=== PATIENT | female | born 1995 | race African-American/Black ===

== ENCOUNTER 2016-07-22 03:11 | Emergency (ER) | payer MEDICAID ==
[~2016-07-22] VITALS: Ht 165.1 cm; Wt 95.3 kg
[2016-07-22 03:30] VITALS: BP 112/59
--- NOTE | 2016-07-22 04:04 | Emergency Room Report ---
History of Present Illness General Chief Complaint: Abdominal Pain Source: Patient Present Illness HPI Is a 20-year-old female with no past medical history. She presents with chief complaint of feeling nauseous and vomiting. His been ongoing for last 2 days. Usually around the afternoon at work after she. Denies any symptoms right now. No fever chills but no diarrhea. Vomiting is nonbloody nonbilious. Her last menstrual period was beginning of May. No vaginal bleeding. Allergies: Coded Allergies: No Known Allergies (Unverified , 07/22/16) Patient History Past Medical History: see triage record, old chart reviewed Past Surgical History: other Pertinent Family History: none Social History: Denies: smoking Last Menstrual Period: MAY 28 Immunizations: other Reviewed Nursing Documentation: PMH: Agreed, PSxH: Agreed Nursing Documentation-PMH Past Medical History: No Stated History Review of Systems Eye: Denies: blurred vision, eye pain ENT: Denies: ear pain, nose congestion, throat swelling Respiratory: Denies: cough, shortness of breath Cardiovascular: Denies: chest pain, palpitations Gastrointestinal: Reports: abdominal pain, nausea, vomiting, Denies: diarrhea Musculoskeletal: Denies: back pain, joint pain Skin: Denies: rash Neurological: Denies: headache, numbness Endocrine: Denies: increased thirst, increased urine Hematologic/Lymphatic: Denies: easy bruising All Other Systems: negative except mentioned in HPI Physical Exam Vital Signs Date Time Temp Pulse Resp B/P Pulse Ox O2 Delivery O2 Flow Rate FiO2 07/22/16 03:17 97.5 85 18 110/57 94 Room Air vitals normal Sp02 EP Interpretation: reviewed, normal General Appearance: well appearing, no apparent distress, alert Head: normocephalic, atraumatic Eyes: bilateral eye EOMI, bilateral eye PERRL ENT: hearing grossly normal, normal pharynx Neck: full range of motion, supple, no meningismus Respiratory: chest non-tender, lungs clear, normal breath sounds Cardiovascular #1: regular rate, rhythm, no murmur Gastrointestinal: normal bowel sounds, non tender, no mass, no organomegaly, no bruit, non-distended Musculoskeletal: back normal, gait/station normal, normal range of motion Psychiatric: mood/affect normal Skin: warm/dry Medical Decision Making Diagnostic Impression: Primary Impression: Qualified Codes: Z3A.01 - Less than 8 weeks gestation of Additional Impression: UTI (urinary tract infection) Qualified Codes: N30.00 - Acute cystitis without hematuria ER Course Patient presents with nausea and vomiting and early . Urine positive. I did a bedside transabdominal ultrasound showed an IUP with yolk sac. No heart rate or fetus seen. No evidence of ectopic. She's not on fertility medication. Last Vital Signs Date Time Temp Pulse Resp B/P Pulse Ox O2 Delivery O2 Flow Rate FiO2 07/22/16 03:30 97.8 82 17 112/59 97 Room Air Status: improved Disposition: HOME, SELF-CARE Condition: Stable Scripts Nitrofurantoin Monohyd/M-Cryst* (MACROBID 100 MG*) 100 Mg Capsule 100 MG ORAL EVERY 12 HOURS, #14 CAP Prov: CARLEEN WALKER M.D. 07/22/16 Ondansetron (Zofran) 4 Mg Tablet 4 MG ORAL Q6H Y for Nausea & Vomiting, #30 TAB 0 Refills Prov: CARLEEN WALKER M.D. 07/22/16 Additional Instructions: Followup with your for referral to see SPOOL FIXER within a week. Return if symptom worsen. Take nhjl-rdr-egseast vitamins. Return if worse CARLEEN WALKER M.D. July 22, 2016 04:03
[2016-07-22 04:05] LABS: KETONES,URINE NEGATIVE (NEGATIVE); NITRITE,URINE NEGATIVE (NEGATIVE); PH,URINE 6 (4.5-8.0); PROTEIN,URINE 2+ (NEGATIVE)
[2016-07-22 04:07] LABS: APPEARANCE,URINE SLIGHTLY CLOUDY
[2016-07-22 04:08] LABS: LEUKOCYTE ESTERASE ,URINE 2+ (NEGATIVE); UROBILINOGEN,URINE 1 MG/DL (0.0-1.0)
[2016-07-22 04:09] LABS: BACTERIA,URINE MODERATE /HPF; RBC,URINE 0-2 /HPF (0 - 2); SQUAMOUS EPITHELIAL CELL,UR MANY /LPF (NONE/OCC)
[2016-07-22] MEDS ORDERED: ZOFRAN4 MG ORAL (04:29)
[2016-07-22] MEDS ORDERED: NITROFURANTOIN100 M2 ORAL (04:29)
[2016-07-22 04:35] VITALS: BP 115/61
== END 2016-07-22 04:35 | disposition home or self-care (01) ==
LOC: EMR 03:45
DX: O23.41 Unspecified infection of urinary tract in pregnancy, first trimester (principal); O26.891 Other specified pregnancy related conditions, first trimester; R11.2 Nausea with vomiting, unspecified; R10.9 Unspecified abdominal pain
CPT/HCPCS: 81003; 81025; 87086; 99284

== ENCOUNTER 2016-10-13 09:23 | Emergency (ER) | payer MEDICAID ==
[~2016-10-13] VITALS: Ht 165.1 cm; Wt 95.7 kg
[~2016-10-13 09:23] MED LIST: NITROFURANTOIN100 M2 ORAL; ZOFRAN4 MG ORAL
[2016-10-13 10:03] VITALS: BP 110/70
[2016-10-13 11:15] VITALS: BP 109/79
[2016-10-13 12:10] LABS: BASOPHILS % (AUTO) 1.3 % (0.0-2.0); EOSINOPHILS % (AUTO) 1.8 % (0.0-3.0); LYMPHOCYTES % (AUTO) 26.3 % (20.0-45.0); MEAN CORPUSCULAR HEMOGLOBIN 25.7 PG (27.0-31.0); MEAN CORPUSCULAR HGB CONC 32.3 G/DL (32.0-36.0); MEAN CORPUSCULAR VOLUME 79 FL (80-99); MEAN PLATELET VOLUME 6.8 FL (6.5-10.1); MONOCYTES % (AUTO) 7.5 % (1.0-10.0); PLATELET COUNT 319 K/UL (150-450); RED BLOOD COUNT 4.44 M/UL (4.20-5.40); RED CELL DISTRIBUTION WIDTH 12.9 % (11.6-14.8); WHITE BLOOD COUNT 7.4 K/UL (4.8-10.8)
[2016-10-13 12:36] LABS: ALANINE AMINOTRANSFERASE 12 U/L (3-33); ALBUMIN/GLOBULIN RATIO 1.2 (1.0-2.7); ANION GAP 14 (5-15); ASPARTATE AMINO TRANSFERASE 14 U/L (5-40); CALCIUM 9.1 mg/dL (8.6-10.2); CARBON DIOXIDE 23 mEQ/L (20-30); CHLORIDE 100 mEQ/L (98-107); CREATININE 0.6 mg/dL (0.5-0.9); GLOMERULAR FILTRATION RATE > 60 mL/min (>60); HEMOLYSIS 0; POTASSIUM 3.8 mEQ/L (3.4-4.9); SODIUM 137 mEQ/L (135-145); TOTAL PROTEIN 7.1 g/dL (6.6-8.7)
[2016-10-13 13:30] VITALS: BP 129/73
[2016-10-13 14:18] VITALS: BP 129/73
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
--- NOTE | 2016-10-14 10:52 | Diagnostic Imaging Report ---
Refer to the OB ultrasound please
--- NOTE | 2016-10-15 08:45 | Diagnostic Imaging Report ---
Indication:Abdominal and pelvic pain. no Technique: Grayscale and duplex Doppler imaging of the pelvis performed utilizing a transabdominal scan. Limited maternal ultrasound performed in all 4 quadrants for assessment of ascites. Comparison: None Findings: There is no maternal ascites demonstrated on the limited ultrasound abdomen exam. Transabdominal scan of the pelvis was performed demonstrating the area of the cervix. The placenta is posterior and the lower tip of the placenta is very close to the internal cervical os if not at least partially covering the internal cervical os. This finding requires reevaluation later in closer to term. The possibility of placenta previa is not excluded. Fetus is currently breech in presentation and demonstrates a transverse lie. anatomy is not assessed adequately on this examination. Amniotic fluid appears appropriate. measurements are as follows: Biparietal diameter 42 mm, 18 weeks 5 days Head circumference 151 mm, 18 weeks one day Abdominal circumference 134 mm, 18 weeks 6 days Femur length 29 mm, 18 weeks 6 days. Estimation of weight 259 g. Composite gestational age 18 weeks 5 days by ultrasound. Clinical age is 19 weeks 5 days by last menstrual period. Impression: Single living intrauterine . Ultrasound estimation of gestational age is 18 weeks 5 days. Clinical estimation of gestational age is 19 weeks 5 days. anatomy not adequately assessed. Suspicion of complete or partial placenta previa. The findings may normalize closer to term. Ultrasound evaluation closer to term is highly recommended. Note: A negative ultrasound evaluation does not insure well-being or positive outcome for the . monitoring including a nonstress test may be needed and clinical evaluation by TAB CUTTER is highly recommended.
== END 2016-10-13 14:21 | disposition left against medical advice (07) ==
LOC: EMR 10:03
DX: O26.92 Pregnancy related conditions, unspecified, second trimester (principal); Z04.1 Encounter for examination and observation following transport accident; Z3A.18 18 weeks gestation of pregnancy
CPT/HCPCS: 36415; 76705; 76805; 80053; 85025; 86850; 86900; 86901; 99284

== ENCOUNTER 2017-09-01 09:39 | Inpatient (IN) | payer MEDICAID ==
[~2017-09-01] VITALS: Ht 167.6 cm; Wt 88.9 kg
[2017-09-01 10:02] VITALS: BP 130/86
[2017-09-01] MEDS ORDERED: Sodium Chloride 500ML 500 ML IV ONE (10:03)
[2017-09-01] MEDS ORDERED: Isovue-300 100ml vial INJ PRN ×2 (10:15→11:15)
[2017-09-01] MEDS ORDERED: Morphine Sulfate 4mg/ml Inj IVP ONE ×2 (10:15→11:15)
[2017-09-01 10:23] LABS: HEMATOCRIT 39.8 % (37.0-47.0); HEMOGLOBIN 12.4 G/DL (12.0-16.0); MEAN CORPUSCULAR VOLUME 70 FL (80-99); PLATELET COUNT 426 K/UL (150-450); RED BLOOD COUNT 5.65 M/UL (4.20-5.40); RED CELL DISTRIBUTION WIDTH 15.7 % (11.6-14.8); WHITE BLOOD COUNT 21.9 K/UL (4.8-10.8)
[2017-09-01 10:25] LABS: APPEARANCE,URINE SLIGHTLY CLOUDY; BILIRUBIN, URINE 1+ (NEGATIVE); COLOR,URINE BROWN; GLUCOSE, URINE (UA) NEGATIVE (NEGATIVE); KETONES,URINE 4+ (NEGATIVE); LEUKOCYTE ESTERASE ,URINE 2+ (NEGATIVE); NITRITE,URINE POSITIVE (NEGATIVE); PH,URINE 6 (4.5-8.0); PROTEIN,URINE 3+ (NEGATIVE); UROBILINOGEN,URINE 8 MG/DL (0.0-1.0)
[2017-09-01 10:35] LABS: ANION GAP 11 mmol/L (5-15); BLOOD UREA NITROGEN 12 mg/dL (7-18); CALCIUM 9.3 MG/DL (8.5-10.1); CARBON DIOXIDE 28 MMOL/L (21-32); CHLORIDE 96 MMOL/L (98-107); CREATININE 0.9 MG/DL (0.55-1.30); POTASSIUM 3.1 MMOL/L (3.5-5.1); SODIUM 135 MMOL/L (136-145)
[2017-09-01 10:39] LABS: ALANINE AMINOTRANSFERASE 16 U/L (12-78); ALBUMIN 3.7 G/DL (3.4-5.0); ALBUMIN/GLOBULIN RATIO 0.8 (1.0-2.7); ALKALINE PHOSPHATASE 68 U/L (46-116); ASPARTATE AMINO TRANSFERASE 11 U/L (15-37); BILIRUBIN,TOTAL 0.7 MG/DL (0.2-1.0)
[2017-09-01] MEDS ORDERED: Ketorolac 30mg Inj IV ONE (11:15)
--- NOTE | 2017-09-01 11:21 | Emergency Room Report ---
History of Present Illness General Chief Complaint: Abdominal Pain Source: Patient Present Illness HPI 22-year-old female presents to ED with abdominal pain 5 days. States pain is sharp, epigastric, radiating to the back. Denies fevers or chills. Denies chest pain or shortness of breath. States she went to [facility] on Friday. States that they gave her GI cocktail and some acid reflux medication through the IV which did not help. Patient was discharged with Tylenol and states her pain is persisting. No other aggravating relieving factors. Denies any other associated symptoms Allergies: Coded Allergies: No Known Allergies (Unverified , 07/22/16) Patient History Past Medical History: none Past Surgical History: none Pertinent Family History: none Social History: Denies: smoking, alcohol use, drug use Last Menstrual Period: 08/02/17 Now: No Immunizations: UTD Reviewed Nursing Documentation: PMH: Agreed; PSxH: Agreed Review of Systems All Other Systems: negative except mentioned in HPI Physical Exam Vital Signs Date Time Temp Pulse Resp B/P (MAP) Pulse Ox O2 Delivery O2 Flow Rate FiO2 09/01/17 09:52 98.8 95 18 148/70 98 Room Air 98.8 Sp02 EP Interpretation: reviewed, normal General Appearance: alert, GCS 15, non-toxic, mild distress Head: normocephalic, atraumatic Eyes: bilateral eye normal inspection, bilateral eye PERRL ENT: hearing grossly normal, normal pharynx, no angioedema, normal voice Neck: full range of motion, supple/symm/no masses Respiratory: chest non-tender, lungs clear, normal breath sounds, speaking full sentences Cardiovascular #1: regular rate, rhythm, no edema Cardiovascular #2: 2+ carotid (R), 2+ carotid (L), 2+ radial (R), 2+ radial (L) , 2+ dorsalis pedis (R), 2+ dorsalis pedis (L) Gastrointestinal: normal bowel sounds, soft, non-distended, no guarding, no rebound, tenderness - epigastric Rectal: deferred Genitourinary: normal inspection, no CVA tenderness Musculoskeletal: back normal, gait/station normal, normal range of motion, non- tender Neurologic: alert, oriented x3, responsive, motor strength/tone normal, sensory intact, speech normal Psychiatric: judgement/insight normal, memory normal, mood/affect normal, no suicidal/homicidal ideation Reflexes: 3+ bicep (R), 3+ bicep (L), 3+ tricep (R), 3+ tricep (L), 3+ knee (R) , 3+ knee (L) Skin: normal color, no rash, warm/dry, well hydrated Lymphatic: no adenopathy Medical Decision Making Diagnostic Impression: Primary Impression: Cholecystitis Additional Impression: UTI (urinary tract infection) Qualified Codes: N39.0 - Urinary tract infection, site not specified ER Course Hospital Course 22-year-old F presents to ED with epigastric/RUQ pain Differential diagnoses include: Appendicitis, cholecystitis, small bowel obstruction Clinical course Patient placed on stretcher. liner helper. After initial history and physical I ordered labs, IV fluids, UA, pain medication and Abd US Labs - leukocytosis noted, Hb/Hct stable. electrolytes ok. UA+ bacteria RUQ US - ? cholecystitis. CT A/P - confirms cholecystitis Antibiotics given. Case discussed with Dr. Ty and he agreed to consult. Case discussed with Dr. Acosta and he agreed to accept the patient to his service for further care and support I feel this is a highly complex case requiring extensive working including EKG/ Rhythm strip, Xray/CT/US, Blood/urine lab work, repeat exams while in ED, and administration of strong opiates/narcotics for pain control, admission to hospital or close patient follow up. Diagnosis - cholecystitis, UTI Patient admitted to hospital in serious condition Labs Test 09/01/17 10:05 White Blood Count 21.9 K/UL (4.8-10.8) Red Blood Count 5.65 M/UL (4.20-5.40) Hemoglobin 12.4 G/DL (12.0-16.0) Hematocrit 39.8 % (37.0-47.0) Mean Corpuscular Volume 70 FL (80-99) Mean Corpuscular Hemoglobin 21.9 PG (27.0-31.0) Mean Corpuscular Hemoglobin Concent 31.1 G/DL (32.0-36.0) Red Cell Distribution Width 15.7 % (11.6-14.8) Platelet Count 426 K/UL (150-450) Mean Platelet Volume 6.7 FL (6.5-10.1) Neutrophils (%) (Auto) % (45.0-75.0) Lymphocytes (%) (Auto) % (20.0-45.0) Monocytes (%) (Auto) % (1.0-10.0) Eosinophils (%) (Auto) % (0.0-3.0) Basophils (%) (Auto) % (0.0-2.0) Differential Total Cells Counted 100 Neutrophils % (Manual) 88 % (45-75) Lymphocytes % (Manual) 3 % (20-45) Monocytes % (Manual) 9 % (1-10) Eosinophils % (Manual) 0 % (0-3) Basophils % (Manual) 0 % (0-2) Band Neutrophils 0 % (0-8) Platelet Estimate Adequate Platelet Morphology Normal Anisocytosis 1+ Target Cells 2+ Urine Color Brown Urine Appearance Slightly cloudy Urine pH 6 (4.5-8.0) Urine Specific Gates 1.020 (1.005-1.035) Urine Protein 3+ (NEGATIVE) Urine Glucose (UA) Negative (NEGATIVE) Urine Ketones 4+ (NEGATIVE) Urine Occult Blood 1+ (NEGATIVE) Urine Nitrite Positive (NEGATIVE) Urine Bilirubin 1+ (NEGATIVE) Urine Ictotest Negative Urine Urobilinogen 8 MG/DL (0.0-1.0) Urine Leukocyte Esterase 2+ (NEGATIVE) Urine RBC 5-10 /HPF (0 - 2) Urine WBC 5-10 /HPF (0 - 2) Urine Squamous Epithelial Cells Moderate /LPF (NONE/OCC) Urine Amorphous Sediment Moderate /LPF (NONE) Urine Bacteria Moderate /HPF (NONE) Urine Mucus Moderate /LPF (NONE/OCC) Urine HCG, Qualitative Negative (NEGATIVE) Sodium Level 135 MMOL/L (136-145) Potassium Level 3.1 MMOL/L (3.5-5.1) Chloride Level 96 MMOL/L (98-107) Carbon Dioxide Level 28 MMOL/L (21-32) Anion Gap 11 mmol/L (5-15) Blood Urea Nitrogen 12 mg/dL (7-18) Creatinine 0.9 MG/DL (0.55-1.30) Estimat Glomerular Filtration Rate > 60 mL/min (>60) Glucose Level 123 MG/DL (74-106) Calcium Level 9.3 MG/DL (8.5-10.1) Total Bilirubin 0.7 MG/DL (0.2-1.0) Aspartate Amino Transf (AST/SGOT) 11 U/L (15-37) Alanine Aminotransferase (ALT/SGPT) 16 U/L (12-78) Alkaline Phosphatase 68 U/L (46-116) Total Protein 8.6 G/DL (6.4-8.2) Albumin 3.7 G/DL (3.4-5.0) Globulin 4.9 g/dL Albumin/Globulin Ratio 0.8 (1.0-2.7) Lipase 53 U/L (73-393) CT/MRI/US Diagnostic Results CT/MRI/US Diagnostic Results #1: Imaging Test Ordered: ABD US Impression There is thickening of the gallbladder wall, gallstone, positive sonographic Benjamin's sign. Findings consistent with acute cholecystitis. Please correlate clinically. CT/MRI/US Diagnostic Results #2: Imaging Test Ordered: CT A/P Impression Suspected acute cholecystitis with the prominent gallstone, markedly thickened wall and pericholecystic inflammation. Last Vital Signs Date Time Temp Pulse Resp B/P (MAP) Pulse Ox O2 Delivery O2 Flow Rate FiO2 09/01/17 11:12 98.8 09/01/17 10:02 94 21 130/86 100 Room Air Status: improved Disposition: ADMITTED INPATIENT Condition: Serious Referrals: NON PHYSICIAN (PCP) Zane Watt MD Sep 01, 2017 11:21
[2017-09-01] MEDS ORDERED: Piperacillin/Tazobactam 3.375 GM in NS 110 ML IVPB ONE (11:30)
[2017-09-01 11:56] VITALS: BP 119/56
--- NOTE | 2017-09-01 12:56 | Diagnostic Imaging Report ---
Indication: Abdominal pain Technique: Continuous helical transaxial imaging of the abdomen and pelvis was obtained from the lung bases to the pubic symphysis during intravenous contrast administration. Coronal 2-D reformats were also obtained. Study obtained in a Siemens sensation [address] Automatic Exposure Control was utilized. Total Dose length Product (DLP): 884.[address] Dose Index Volume (CTDIvol): 18.6 mGy Comparison: None Findings: Lung bases are clear. The liver, spleen and pancreas appear unremarkable. There is moderate thickening of the wall the gallbladder. Prominent gallstone demonstrated. Surrounding inflammation is present. Findings consistent with acute cholecystitis. Please confirm clinically. There is a mild amount of free fluid within the pelvis. There is a suggestion of a right-sided ovarian cyst. Uterus is noted. The urinary bladder is nondistended. The kidneys are unremarkable. The appendix is partially seen and grossly normal. The colon is diffusely underdistended and may account for some prominence of the wall. IMPRESSION: Suspected acute cholecystitis with the prominent gallstone, markedly thickened wall and pericholecystic inflammation. Mild free fluid. Suggestion of right ovarian cysts. Diffusely underdistended colon probably accounting for the prominence of the wall. Colitis is not excluded. Correlate clinically. The CT scanner at [facility] is accredited by the [employer] and the scans are performed using dose optimization techniques as appropriate to a performed exam including Automatic Exposure control.
--- NOTE | 2017-09-01 13:01 | Diagnostic Imaging Report ---
Indication:Abdominal pain Technique: Grayscale and duplex Doppler imaging of the abdomen performed. Comparison: None Findings: There is thickening of the gallbladder wall, gallstone, positive sonographic Benjamin's sign. Findings consistent with acute cholecystitis. Please correlate clinically. The liver, demonstrated part of the pancreas, aorta and IVC, both kidneys, spleen appear unremarkable. There is a tiny left renal cyst demonstrated. There is no biliary ductal dilatation identified. CBD is 3.7 mm. Doppler evaluation of the main portal vein shows patency. There is no ascites. No hydronephrosis seen. Impression: Suspected acute cholecystitis. Small left renal cyst
[2017-09-01] MEDS ORDERED: LR 1000ml 1,000 ML IV SCH (15:30)
[2017-09-01 16:00] VITALS: BP 108/66
[2017-09-01 20:00] VITALS: BP 130/68
[2017-09-01] MEDS: Morphine Sulfate 2mg/ml Inj IVP PRN (20:13)
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
[2017-09-02] VITALS: BP 123/62
[2017-09-02] MEDS: Piperacillin/Tazobactam 3.375 GM in D5W 110 ML IVPB SCH ×4 (01:23→21:56)
[2017-09-02] MEDS: LR IV SCH ×3 (01:23→22:30)
[2017-09-02] MEDS: POTASSIUM CHLORIDE IV SCH ×3 (01:23→22:30)
[2017-09-02] MEDS: cefTRIAXone 1 GM in D5W 55 ML IVPB SCH ×2 (01:46→21:00)
--- NOTE | 2017-09-02 02:15 | History and Physical Report ---
DATE OF ADMISSION: 09/01/2017 CHIEF COMPLAINT/REASON FOR HOSPITALIZATION: The patient is a 22-year-old lady, admitted with abdominal pain. HISTORY OF PRESENT ILLNESS: She has had several days of abdominal pain mostly in the epigastric in the right upper quadrant. No fever, chills, nausea, or vomiting. She is found to have leukocytosis, and imaging suggesting of cholecystitis. She has had no prior episodes of attacks. She has otherwise been in good health. PAST SURGICAL HISTORY: section. ALLERGIES: None known. MEDICATIONS: None. HABITS: She is a nondrinker and nonsmoker. No use of illicit drugs. SOCIAL HISTORY: She is . SYSTEM REVIEW: Other than the above is negative. She was in [facility] a few days ago and was released with medicines for gastritis. PHYSICAL EXAMINATION: GENERAL: The patient is alert, well-developed lady, in no acute distress. VITAL SIGNS: Temperature 98.8, pulse 95, respirations 18, and blood pressure 148/70. HEENT: Sclerae are nonicteric. Ocular motions intact in all directions. Oral mucosa moist. NECK: No adenopathy or thyroid enlargement. LUNGS: Clear. HEART: Regular rhythm. No murmur. ABDOMEN: Soft, nondistended. Liver and spleen not palpable. No tenderness on my exam at this time, but she has received morphine. EXTREMITIES: No edema, cyanosis, or clubbing. IMPRESSION: 1. Acute cholecystitis with leukocytosis and abnormal laboratories. 2. Mild hypokalemia. 3. Otherwise good health. PLAN: The patient will be observed medically. She is having surgical consultation and we will assess the need for surgery on this admission versus conservative therapy and outpatient followup. Ryan Acosta M.D. DR: ESTHELA JOB#: [id number] CC:
[2017-09-02 04:00] VITALS: BP 117/66
[2017-09-02] MEDS: Morphine Sulfate 4mg/ml Inj IVP PRN ×2 (04:44→12:25)
[2017-09-02 06:39] LABS: BASOPHILS % (AUTO) 1.5 % (0.0-2.0); EOSINOPHILS % (AUTO) 0.2 % (0.0-3.0); HEMATOCRIT 33.4 % (37.0-47.0); HEMOGLOBIN 10.7 G/DL (12.0-16.0); LYMPHOCYTES % (AUTO) 8.8 % (20.0-45.0); MEAN CORPUSCULAR VOLUME 70 FL (80-99); MONOCYTES % (AUTO) 8.6 % (1.0-10.0); PLATELET COUNT 327 K/UL (150-450); RED BLOOD COUNT 4.78 M/UL (4.20-5.40); RED CELL DISTRIBUTION WIDTH 15.5 % (11.6-14.8); WHITE BLOOD COUNT 13.4 K/UL (4.8-10.8)
[2017-09-02 07:12] LABS: ALANINE AMINOTRANSFERASE 19 U/L (12-78); ALBUMIN 2.9 G/DL (3.4-5.0); ALBUMIN/GLOBULIN RATIO 0.7 (1.0-2.7); ALKALINE PHOSPHATASE 93 U/L (46-116); ANION GAP 9 mmol/L (5-15); ASPARTATE AMINO TRANSFERASE 12 U/L (15-37); BILIRUBIN,TOTAL 0.7 MG/DL (0.2-1.0); BLOOD UREA NITROGEN 10 mg/dL (7-18); CALCIUM 8.3 MG/DL (8.5-10.1); CARBON DIOXIDE 27 MMOL/L (21-32); CHLORIDE 99 MMOL/L (98-107); CREATININE 0.8 MG/DL (0.55-1.30); POTASSIUM 2.9 MMOL/L (3.5-5.1); SODIUM 135 MMOL/L (136-145)
[2017-09-02 08:00] VITALS: BP 131/75
[2017-09-02] MEDS: Morphine Sulfate 2mg/ml Inj IVP PRN (09:56)
--- NOTE | 2017-09-02 10:48 | General Surgery Progress Note ---
General Surgery-Progress Note Subjective Symptoms: improved Additional Comments still requires narcotic pain medication but pain okay when given Objective Last 24 Hour Vital Signs Date Time Temp Pulse Resp B/P (MAP) Pulse Ox O2 Delivery O2 Flow Rate FiO2 09/02/17 09:00 Room Air 09/02/17 08:00 99.6 65 20 131/75 (93) 100 99.6 09/02/17 04:00 99.5 78 18 117/66 (83) 96 99.5 09/02/17 00:00 98.4 91 17 123/62 (82) 100 98.4 09/01/17 21:00 Room Air 09/01/17 20:00 98.8 80 18 130/68 (88) 94 98.8 09/01/17 17:48 Room Air 09/01/17 16:00 99.1 68 18 108/66 (80) 98 99.1 09/01/17 13:26 98.4 77 17 119/56 99 Room Air 98.4 09/01/17 11:56 98.4 77 17 119/56 99 Room Air 98.4 09/01/17 11:42 98.8 09/01/17 11:42 98.8 09/01/17 11:12 98.8 09/01/17 11:12 98.8 I&O Intake and Output 09/01/17 09/02/17 19:00 07:00 Intake Total 1760 ml 200 ml Balance 1760 ml 200 ml Intake Oral 200 ml IV Total 1760 ml # Voids 1 1 Drains: none Cardiovascular: RSR Respiratory: clear Abdomen: soft, non-tender, present bowel sounds Extremities: no cyanosis Laboratory Tests Test 09/02/17 06:00 White Blood Count 13.4 K/UL (4.8-10.8) H Red Blood Count 4.78 M/UL (4.20-5.40) Hemoglobin 10.7 G/DL (12.0-16.0) L Hematocrit 33.4 % (37.0-47.0) L Mean Corpuscular Volume 70 FL (80-99) L Mean Corpuscular Hemoglobin 22.4 PG (27.0-31.0) L Mean Corpuscular Hemoglobin Concent 32.0 G/DL (32.0-36.0) Red Cell Distribution Width 15.5 % (11.6-14.8) H Platelet Count 327 K/UL (150-450) Mean Platelet Volume 6.0 FL (6.5-10.1) L Neutrophils (%) (Auto) 81.0 % (45.0-75.0) H Lymphocytes (%) (Auto) 8.8 % (20.0-45.0) L Monocytes (%) (Auto) 8.6 % (1.0-10.0) Eosinophils (%) (Auto) 0.2 % (0.0-3.0) Basophils (%) (Auto) 1.5 % (0.0-2.0) Sodium Level 135 MMOL/L (136-145) L Potassium Level 2.9 MMOL/L (3.5-5.1) L Chloride Level 99 MMOL/L (98-107) Carbon Dioxide Level 27 MMOL/L (21-32) Anion Gap 9 mmol/L (5-15) Blood Urea Nitrogen 10 mg/dL (7-18) Creatinine 0.8 MG/DL (0.55-1.30) Estimat Glomerular Filtration Rate > 60 mL/min (>60) Glucose Level 87 MG/DL (74-106) Calcium Level 8.3 MG/DL (8.5-10.1) L Total Bilirubin 0.7 MG/DL (0.2-1.0) Aspartate Amino Transf (AST/SGOT) 12 U/L (15-37) L Alanine Aminotransferase (ALT/SGPT) 19 U/L (12-78) Alkaline Phosphatase 93 U/L (46-116) Total Protein 7.2 G/DL (6.4-8.2) Albumin 2.9 G/DL (3.4-5.0) L Globulin 4.3 g/dL Albumin/Globulin Ratio 0.7 (1.0-2.7) L Plan Problems: (1) Cholecystitis Assessment & Plan: 22 F with acute cholecystitis. afebrile, HD stable, leukocytosis significant. CT/US consistent with diagnosis. exam improved with narcotics. -NPO -IV fluids -IV Abx -Pending HIDA Scan today -if HIDA positive will need cholecystectomy -if HIDA negative and functional gallbladder with improvement in exam and labs will discuss elective gurpreet with patient thank you for this consultation. will follow with recs. Eleno Ty 10, 2018 10:48
--- NOTE | 2017-09-02 12:46 | General Progress Note ---
Assessment/Plan Problem List: (1) Iron (Fe) deficiency anemia ICD Codes: D50.9 - Iron deficiency anemia, unspecified SNOMED: 72360504 (2) Hypokalemia ICD Codes: E87.6 - Hypokalemia SNOMED: 90635482 (3) Cholecystitis ICD Codes: K81.9 - Cholecystitis, unspecified SNOMED: 56593622 Assessment/Plan hida and reassess Subjective Constitutional: Reports: weakness HEENT: Reports: no symptoms Cardiovascular: Reports: no symptoms Respiratory: Reports: no symptoms Gastrointestinal/Abdominal: Reports: abdominal pain Genitourinary: Reports: no symptoms Neurologic/Psychiatric: Reports: no symptoms Endocrine: Reports: no symptoms Allergies: Coded Allergies: No Known Allergies (Unverified , 07/22/16) Objective Last 24 Hour Vital Signs Date Time Temp Pulse Resp B/P (MAP) Pulse Ox O2 Delivery O2 Flow Rate FiO2 09/02/17 09:00 Room Air 09/02/17 08:00 99.6 65 20 131/75 (93) 100 99.6 09/02/17 04:00 99.5 78 18 117/66 (83) 96 99.5 09/02/17 00:00 98.4 91 17 123/62 (82) 100 98.4 09/01/17 21:00 Room Air 09/01/17 20:00 98.8 80 18 130/68 (88) 94 98.8 09/01/17 17:48 Room Air 09/01/17 16:00 99.1 68 18 108/66 (80) 98 99.1 09/01/17 13:26 98.4 77 17 119/56 99 Room Air 98.4 Intake and Output 09/01/17 09/02/17 19:00 07:00 Intake Total 1760 ml 200 ml Balance 1760 ml 200 ml Intake Oral 200 ml IV Total 1760 ml # Voids 1 1 Laboratory Tests 09/02/17 06:00: White Blood Count 13.4H, Red Blood Count 4.78, Hemoglobin 10.7L, Hematocrit 33.4L, Mean Corpuscular Volume 70L, Mean Corpuscular Hemoglobin 22.4L, Mean Corpuscular Hemoglobin Concent 32.0, Red Cell Distribution Width 15.5H, Platelet Count 327, Mean Platelet Volume 6.0L, Neutrophils (%) (Auto) 81.0H, Lymphocytes (%) (Auto) 8.8L, Monocytes (%) (Auto) 8.6, Eosinophils (%) (Auto) 0.2, Basophils (%) (Auto) 1.5, Sodium Level 135L, Potassium Level 2.9L, Chloride Level 99, Carbon Dioxide Level 27, Anion Gap 9, Blood Urea Nitrogen 10 , Creatinine 0.8, Estimat Glomerular Filtration Rate > 60, Glucose Level 87, Calcium Level 8.3L, Total Bilirubin 0.7, Aspartate Amino Transf (AST/SGOT) 12L, Alanine Aminotransferase (ALT/SGPT) 19, Alkaline Phosphatase 93, Total Protein 7.2, Albumin 2.9L, Globulin 4.3, Albumin/Globulin Ratio 0.7L Height (Feet): 5 Height (Inches): 6.00 Weight (Pounds): 197 General Appearance: no apparent distress EENT: normal ENT inspection Neck: non-tender Cardiovascular: normal rate Respiratory/Chest: lungs clear Abdomen: non tender JUAN FOREMAN Sep 02, 2017 12:46
--- NOTE | 2017-09-02 14:13 | Diagnostic Imaging Report ---
Indication: Abdominal Pain Technique: 5.4 mCi of technetium 99 m-Choletec was injected intravenously. Planar imaging of the abdomen was then performed every 3 minutes up to 60 minutes. 4 mg morphine administered after 60 minutes followed by additional 30 minutes of dynamic imaging. Oblique views were also obtained. Findings: There is prompt uptake within the liver with washout of radiotracer from the liver on subsequent imaging. There is excretion into the biliary ducts. Bowel activity is demonstrated in a timely fashion indicating patency of the common bile duct. Gallbladder is not visualized, despite morphine administration and delayed imaging IMPRESSION: Findings compatible with acute cholecystitis, as suggested on findings of concurrent abdominal ultrasound and CT. Findings discussed the patient's treating nurse on 4 E. via telephone conversation. Treating RN to convey findings to ordering physician.
[2017-09-02 16:00] VITALS: BP 135/75
--- NOTE | 2017-09-02 16:20 | Anethesia Preoperative Eval ---
Anesthesia Pre-op PMH/ROS General Date of Evaluation: Sep 02, 2017 Time of Evaluation: 16:16 Anesthesiologist: Brodie ASA Score: ASA 2 Mallampati Score Class I : Soft palate, uvula, fauces, pillars visible Class II: Soft palate, uvula, fauces visible Class III: Soft palate, base of uvula visible Class IV: Only hard plate visible Mallampati Classification: Class II Surgeon: Steffanie Diagnosis: Acute cholecystitis Surgical Procedure: Lap. cholecystectomy Anesthesia History: none Family History: no anesthesia problems Allergies: Coded Allergies: No Known Allergies (Unverified , 07/22/16) Medications: see eMAR Past Medical History Cardiovascular: Denies: HTN, CAD, MA, valve dz, arrhythmia, other Pulmonary: Denies: asthma, COPD, ANKUSH, other Gastrointestinal/Genitourinary: Reports: GERD, other - Recurrent abdominal pain , recent UTI; Denies: CRI, ESRD Neurologic/Psychiatric: Denies: dementia, CVA, depression/anxiety, TIA, other Endocrine: Denies: DM, hypothyroidism, steroids, other HEENT: Denies: cataract (L), cataract (R), glaucoma, SEMINOLE (L), SEMINOLE (R), other Hematology/Immune: Reports: anemia - mild; Denies: DVT, bleeding disorder, other Musculoskeletal/Integumentary: Denies: OA, RA, DJD, DDD, edema, other Other: obesity PMH Narrative: admitted for acute abdominal pain PSxH Narrative: Anesthesia Pre-op Phys. Exam Physician Exam Last Vital Signs Date Time Temp Pulse Resp B/P (MAP) Pulse Ox O2 Delivery O2 Flow Rate FiO2 09/02/17 16:00 97.2 83 20 135/75 (95) 100 97.2 09/02/17 09:00 Room Air Constitutional: NAD Neurologic: CN 2-12 intact Cardiovascular: RRR, no M/R/G Respiratory: CTA Gastrointestinal: other - Slightly tender in epigastric and RUQ area Airway Exam Mallampati Score: Class II MO: limited Neck: short ROM: full Teeth: intact Dentures: no upper, no lower Anesthesia Pre-op A/P Labs Hematology Test 09/02/17 06:00 White Blood Count 13.4 K/UL (4.8-10.8) H Red Blood Count 4.78 M/UL (4.20-5.40) Hemoglobin 10.7 G/DL (12.0-16.0) L Hematocrit 33.4 % (37.0-47.0) L Mean Corpuscular Volume 70 FL (80-99) L Mean Corpuscular Hemoglobin 22.4 PG (27.0-31.0) L Mean Corpuscular Hemoglobin Concent 32.0 G/DL (32.0-36.0) Red Cell Distribution Width 15.5 % (11.6-14.8) H Platelet Count 327 K/UL (150-450) Mean Platelet Volume 6.0 FL (6.5-10.1) L Neutrophils (%) (Auto) 81.0 % (45.0-75.0) H Lymphocytes (%) (Auto) 8.8 % (20.0-45.0) L Monocytes (%) (Auto) 8.6 % (1.0-10.0) Eosinophils (%) (Auto) 0.2 % (0.0-3.0) Basophils (%) (Auto) 1.5 % (0.0-2.0) Chemistry Test 09/02/17 06:00 Sodium Level 135 MMOL/L (136-145) L Potassium Level 2.9 MMOL/L (3.5-5.1) L Chloride Level 99 MMOL/L (98-107) Carbon Dioxide Level 27 MMOL/L (21-32) Anion Gap 9 mmol/L (5-15) Blood Urea Nitrogen 10 mg/dL (7-18) Creatinine 0.8 MG/DL (0.55-1.30) Estimat Glomerular Filtration Rate > 60 mL/min (>60) Glucose Level 87 MG/DL (74-106) Calcium Level 8.3 MG/DL (8.5-10.1) L Total Bilirubin 0.7 MG/DL (0.2-1.0) Aspartate Amino Transf (AST/SGOT) 12 U/L (15-37) L Alanine Aminotransferase (ALT/SGPT) 19 U/L (12-78) Alkaline Phosphatase 93 U/L (46-116) Total Protein 7.2 G/DL (6.4-8.2) Albumin 2.9 G/DL (3.4-5.0) L Globulin 4.3 g/dL Albumin/Globulin Ratio 0.7 (1.0-2.7) L Risk Assessment & Plan Assessment: ASA 2 Plan: GA with ETT PONV prevention Status Change Before Surgery: No Pre-Antibiotics Drug: as scheduled Marc Calloway MD Sep 02, 2017 16:20
[2017-09-02 20:00] VITALS: BP 126/73
[2017-09-03] VITALS (8 sets, daily range): BP systolic 118–140; BP diastolic 57–81
[2017-09-03] MEDS: LR IV SCH ×3 (05:06→22:43)
[2017-09-03] MEDS: POTASSIUM CHLORIDE IV SCH ×3 (05:06→22:43)
[2017-09-03] MEDS: Piperacillin/Tazobactam 3.375 GM in D5W 110 ML IVPB SCH ×3 (05:07→22:37)
[2017-09-03] MEDS: Morphine Sulfate 2mg/ml Inj IVP PRN (05:39)
[2017-09-03] MEDS ORDERED: Lidocaine 1% MPF 10mg/ml 5ml ONE (07:06)
[2017-09-03] MEDS ORDERED: Propofol 200mg/20ml IV ONE (07:06)
[2017-09-03] MEDS ORDERED: fentaNYL 100 mcg/2 mL IV ONE (07:07)
[2017-09-03] MEDS ORDERED: Midazolam 2mg/2ml Inj ONE (07:07)
[2017-09-03] MEDS ORDERED: Sodium Chloride 10ml vial INJ ONE ×2 (07:11→08:21)
--- NOTE | 2017-09-03 07:16 | Pre-Procedure Note/Attestation ---
Pre-Procedure Note/Attestation Complete Prior to Procedure Planned Procedure: not applicable Procedure Narrative: laparoscopic cholecystectomy, possible open Indications for Procedure Pre-Operative Diagnosis: acute cholecystitis Attestation I attest that I discussed the nature of the procedure; its benefits; risks and complications; and alternatives (and the risks and benefits of such alternatives ), prior to the procedure, with the patient (or the patient's legal novelties sales representative). I attest that, if there was a reasonable possibility of needing a blood transfusion, the patient (or the patient's legal novelties sales representative) was given the [facility] standardized written summary, pursuant to the [place] Blood Safety Act ([place] Health and Safety Code # 1645, as amended). I attest that I re-evaluated the patient just prior to the surgery and that there has been no change in the patient's H&P, except as documented below: Eleno Ty Sep 03, 2017 07:16
[2017-09-03] MEDS ORDERED: Bupivacaine 0.25% Inj 30ml INJ ONE (07:20)
[2017-09-03] MEDS ORDERED: EPINEPHrine 1mg/1ml Amp ONE (07:20)
[2017-09-03] MEDS ORDERED: Lidocaine 1% 10mg/ml/Epi 0.005mg/ml 30ml vial INJ ONE (07:20)
[2017-09-03] MEDS ORDERED: Iothalamate Meglumine 60% 30ML INJ ONE (07:21)
[2017-09-03] MEDS ORDERED: Succinylcholine 20mg/ml 10ml vial ONE (07:21)
[2017-09-03] MEDS ORDERED: Zemuron 50mg/5ml Inj IV ONE (07:21)
[2017-09-03] MEDS ORDERED: LR 1000ml ONE (07:30)
[2017-09-03] MEDS ORDERED: NS Irrig 1000ml ONE (07:30)
[2017-09-03] MEDS ORDERED: Sterile Water Irrig 1000ml IRRIG ONE (07:30)
[2017-09-03] MEDS ORDERED: Neostigmine 1mg/ml 10ml Inj ONE (07:30)
[2017-09-03] MEDS ORDERED: NS Irrig 1000ml IRRIG ONE (08:00)
[2017-09-03] MEDS ORDERED: Ketorolac 30mg Inj ONE (08:18)
[2017-09-03] MEDS ORDERED: Glycopyrrolate 0.2mg/ml 1ml Vial ONE (08:18)
[2017-09-03] MEDS ORDERED: Morphine Sulfate 10mg/ml Inj ONE (08:20)
[2017-09-03] MEDS ORDERED: Midazolam 2mg/2ml Inj IVP PRN (08:30)
[2017-09-03] MEDS ORDERED: Metoclopramide 10mg/2ml Inj IVP PRN (08:30)
[2017-09-03] MEDS ORDERED: fentaNYL 100 mcg/2 mL IV PRN (08:30)
[2017-09-03] MEDS ORDERED: Ketorolac 30mg Inj IV PRN (08:30)
[2017-09-03] MEDS ORDERED: Meperidine 50mg/ml Inj(FOR RIGORS ONLY) IV PRN (08:30)
[2017-09-03] MEDS ORDERED: DiphenhydrAMINE 50mg/ml Inj IVP PRN (08:30)
[2017-09-03] MEDS: LR 1000ml 1,000 ML IVLG SCH ×2 (08:30→10:01)
--- NOTE | 2017-09-03 09:49 | Immediate Post-Op Evaluation ---
Immediate Post-Op Evalulation Immediate Post-Op Evalulation Procedure: Laparoscopic cholecystectomy Date of Evaluation: Sep 03, 2017 Time of Evaluation: 09:48 IV Fluids: 1100 Blood Products: none Estimated Blood Loss: 100 Urinary Output: none Blood Pressure Systolic: 118 Blood Pressure Diastolic: 64 Pulse Rate: 85 Respiratory Rate: 22 O2 Sat by Pulse Oximetry: 99 Temperature (Fahrenheit): 98.4 Pain Score (1-10): 2 Nausea: No Vomiting: No Complications none Patient Status: reacts, patent, extubated, none Hydration Status: adequate Marc Calloway MD Sep 03, 2017 09:49
--- NOTE | 2017-09-03 11:19 | Brief Operative Note ---
Immediate Post Operative Note Operative Note Pre-op Diagnosis: acute cholecystitis Procedure: lap gurpreet Post-op Diagnosis: same as pre-op Surgeon: dianne Anesthesiologist: yulia Anesthesia: general Specimen: yes Complications: none Condition: stable Fluids: see records Estimated Blood Loss: minimal Implant(s) used?: No Eleno Ty Sep 03, 2017 11:19
[2017-09-03] MEDS ORDERED: HYDROcodone/Acetamin 10/325 tab ORAL PRN (11:30)
[2017-09-03] MEDS ORDERED: Norco 5mg/325mg tab ORAL PRN (11:30)
[2017-09-03] MEDS ORDERED: Morphine Sulfate 2mg/ml Inj IVP PRN ×2 (11:30)
[2017-09-03] MEDS ORDERED: Milk of Magnesia 30ml Ud ORAL PRN (11:30)
[2017-09-03] MEDS ORDERED: Morphine Sulfate 4mg/ml Inj IVP PRN (11:30)
[2017-09-03 14:53] LABS: BASOPHILS % (AUTO) 0.5 % (0.0-2.0); EOSINOPHILS % (AUTO) 0.3 % (0.0-3.0); HEMATOCRIT 33.2 % (37.0-47.0); HEMOGLOBIN 10.3 G/DL (12.0-16.0); MEAN CORPUSCULAR VOLUME 70 FL (80-99); MONOCYTES % (AUTO) 6.5 % (1.0-10.0); NEUTROPHILS % (AUTO) 76.8 % (45.0-75.0); PLATELET COUNT 362 K/UL (150-450); RED BLOOD COUNT 4.73 M/UL (4.20-5.40); RED CELL DISTRIBUTION WIDTH 15.5 % (11.6-14.8)
[2017-09-03 15:00] LABS: INR 1.1 (0.9-1.1)
[2017-09-03 15:09] LABS: ALANINE AMINOTRANSFERASE 47 U/L (12-78); ALBUMIN 2.6 G/DL (3.4-5.0); ALBUMIN/GLOBULIN RATIO 0.6 (1.0-2.7); ALKALINE PHOSPHATASE 98 U/L (46-116); ANION GAP 7 mmol/L (5-15); ASPARTATE AMINO TRANSFERASE 48 U/L (15-37); BILIRUBIN,TOTAL 0.6 MG/DL (0.2-1.0); BLOOD UREA NITROGEN 6 mg/dL (7-18); CALCIUM 8.3 MG/DL (8.5-10.1); CARBON DIOXIDE 29 MMOL/L (21-32); CHLORIDE 100 MMOL/L (98-107); CREATININE 0.8 MG/DL (0.55-1.30); POTASSIUM 3.9 MMOL/L (3.5-5.1); SODIUM 136 MMOL/L (136-145)
[2017-09-03] MEDS: Docusate 100mg cap ORAL SCH (17:19)
--- NOTE | 2017-09-03 18:06 | General Progress Note ---
Assessment/Plan Problem List: (1) Iron (Fe) deficiency anemia ICD Codes: D50.9 - Iron deficiency anemia, unspecified SNOMED: 11630183 (2) Hypokalemia ICD Codes: E87.6 - Hypokalemia SNOMED: 25609631 (3) Cholecystitis ICD Codes: K81.9 - Cholecystitis, unspecified SNOMED: 05564621 Assessment/Plan stable postop Subjective Constitutional: Reports: weakness HEENT: Reports: no symptoms Cardiovascular: Reports: no symptoms Respiratory: Reports: no symptoms Gastrointestinal/Abdominal: Reports: abdominal pain Genitourinary: Reports: no symptoms Neurologic/Psychiatric: Reports: no symptoms Endocrine: Reports: no symptoms Allergies: Coded Allergies: No Known Allergies (Unverified , 07/22/16) Objective Last 24 Hour Vital Signs Date Time Temp Pulse Resp B/P (MAP) Pulse Ox O2 Delivery O2 Flow Rate FiO2 09/03/17 15:57 98.9 78 19 125/70 (88) 100 98.9 09/03/17 12:00 98.0 63 19 118/60 (79) 100 98.0 09/03/17 10:24 75 20 120/58 100 Nasal Cannula 3 09/03/17 09:49 209.1 85 22 99 09/03/17 09:48 75 20 122/63 100 Nasal Cannula 3 09/03/17 09:43 85 22 123/57 100 Simple Mask 8 09/03/17 09:38 98.9 85 22 118/69 100 Simple Mask 8 98.9 09/03/17 09:00 Room Air 09/03/17 05:39 99.0 09/03/17 04:00 99.0 71 19 140/81 (100) 100 99.0 09/02/17 21:00 Room Air 09/02/17 20:26 97.2 09/02/17 20:00 99.3 67 20 126/73 (90) 98 99.3 09/02/17 19:27 97.2 Intake and Output 09/02/17 09/03/17 19:00 07:00 Intake Total 200 ml 192.5 ml Balance 200 ml 192.5 ml Intake Oral 200 ml IV Total 192.5 ml # Voids 5 3 # Bowel Movements 2 Laboratory Tests 09/03/17 14:10: White Blood Count 9.0, Red Blood Count 4.73, Hemoglobin 10.3L, Hematocrit 33.2L , Mean Corpuscular Volume 70L, Mean Corpuscular Hemoglobin 21.7L, Mean Corpuscular Hemoglobin Concent 30.9L, Red Cell Distribution Width 15.5H, Platelet Count 362, Mean Platelet Volume 5.3L, Neutrophils (%) (Auto) 76.8H, Lymphocytes (%) (Auto) 16.0L, Monocytes (%) (Auto) 6.5, Eosinophils (%) (Auto) 0.3, Basophils (%) (Auto) 0.5, Prothrombin Time 11.1, Prothromb Time International Ratio 1.1, Activated Partial Thromboplast Time 36H, Sodium Level 136, Potassium Level 3.9, Chloride Level 100, Carbon Dioxide Level 29, Anion Gap 7, Blood Urea Nitrogen 6L, Creatinine 0.8, Estimat Glomerular Filtration Rate > 60, Glucose Level 111H, Calcium Level 8.3L, Total Bilirubin 0.6, Aspartate Amino Transf (AST/SGOT) 48H, Alanine Aminotransferase (ALT/SGPT) 47, Alkaline Phosphatase 98, Total Protein 7.0, Albumin 2.6L, Globulin 4.4, Albumin/ Globulin Ratio 0.6L Height (Feet): 5 Height (Inches): 6.00 Weight (Pounds): 196 General Appearance: no apparent distress EENT: normal ENT inspection Neck: normal alignment Cardiovascular: normal rate Respiratory/Chest: normal breath sounds Abdomen: tender Extremities: normal range of motion JUAN FOREMAN Sep 03, 2017 18:06
--- NOTE | 2017-09-03 23:45 | Operative Note - Dictated ---
DATE OF OPERATION: 09/03/2017 SURGEON: Eleno Ty M.D. PREOPERATIVE DIAGNOSIS: Acute cholecystitis. POSTOPERATIVE DIAGNOSIS: Acute cholecystitis. OPERATION PERFORMED: Laparoscopic cholecystectomy. ATTENDING SURGEON: Eleno Ty M.D. LATCHER: None. ANESTHESIOLOGIST: Marc Calloway M.D. 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 SPECIMENS: Gallbladder and contained stones sent to pathology for review. COMPLICATIONS: None. DRAINS: None. CONDITION: Stable. FLUIDS: Please see anesthesia records. ESTIMATED BLOOD LOSS: Minimal. COUNTS: Sponge and needle count correct x2. WOUND CLASSIFICATION: Class III. ANTIBIOTICS: The patient on scheduled IV antibiotics for acute active inflammatory process. INDICATIONS FOR PROCEDURE: This is a 22-year-old female, who presented to the emergency department with acute onset of worsening right upper quadrant tenderness. She was initially noted to have significant leukocytosis of 21,900 and a differential with shift. Further workup revealed an ultrasound with thickening of the gallbladder wall, gallstones, and positive sonographic Benjamin sign consistent with acute cholecystitis. Further a CT scan of the abdomen and pelvis identified suspected acute cholecystitis, prominent gallstone, markedly thickened wall, and pericholecystic inflammation with some free fluid and finally a HIDA scan was performed, which was compatible with acute cholecystitis and nonvisualization of the gallbladder despite morphine administration and delayed imaging. Given these findings, surgery was indicated and recommended. Risks, benefits, and alternatives were discussed with the patient in detail and consented to operation which was performed on 09/03/2017. OPERATIVE NOTE: The patient was taken to the operating room and placed on the operating table in supine position with bilateral arms out. All bony prominences were well padded with GelPads. Preoperative time-out was taken identifying the patient, procedure, operative site, and surgical staff. SCDs were placed. The patient was on scheduled IV antibiotics prior to entering the operating room. General anesthesia was induced. The patient was intubated. The abdomen was clipped, prepped, and draped in standard surgical fashion. An infraumbilical incision was made and carried down to the fascia, which was elevated and incised. Entry into the abdomen was noted using open Linda technique without complication. A 12 mm Linda trocar was inserted. The abdomen was insufflated to 12 to 15 mmHg. The patient was placed in reverse Trendelenburg with left side down. Secondary trocars were placed under direct visualization beginning with a 12 millimeter subxiphoid right epigastric port followed by two 5 mm subcostal ports. All secondary trocars were placed under direct visualization without complication. Local anesthetic was used throughout the procedure for port site placement. The gallbladder was noted with significantly dense omental adhesions in the right upper quadrant. Omental adhesions were bluntly dissected off the gallbladder until the dome of the gallbladder and infundibulum could be identified. The gallbladder was fairly distended and thickened and unable to be grasped with a grasper requiring drainage first. A laparoscopic needle was used and over 50 mL of bilious fluid was evacuated from the gallbladder. Once the gallbladder was decompressed, the dome of the gallbladder was grasped and noted to be very thickened. The gallbladder was then retracted over the liver using the most lateral port. The infundibulum was identified and noted to be very thickened as well. The peritoneal lining of the infundibulum was scored with electrocautery and the lining slowly dissected until the cystic duct and artery could be identified. The cystic duct and artery were identified and circumferentially dissected out. The critical view was obtained and once this was completed, the cystic duct was first doubly clipped and divided followed by the cystic artery. No other structures were noted to be entering into the biliary system. Large gallstone was noted impacted in the neck of the gallbladder. Of note, there were significant amount of inflammatory tissue with a very thickened gallbladder wall and edema not being noted. The gallbladder was then removed from the liver bed using electrocautery without complication. Hemostasis was achieved with electrocautery. A Surgicel was left in the gallbladder fossa. Cystic duct and artery were inspected and noted to be hemostatic and without any leakage. The gallbladder was placed in an endoscopic retrieval bag and removed through the umbilical port site. Secondary trocars were removed under direct visualization and the procedure concluded. The abdomen was allowed to desufflate. All wound sites were cleansed. The umbilical port site fascia was closed using a #0 [id number] Vicryl suture. Remaining skin incisions were closed using 4-0 Monocryl in subcuticular interrupted sutures. Skin glue and Steri-Strips were placed followed by dressings. The patient tolerated the procedure well, was extubated, and taken to postanesthetic care unit in stable condition. Eleno Ty M.D. DR: Jonathan JOB#: [id number] CC:
[2017-09-04] VITALS: BP 97/60
[2017-09-04 04:00] VITALS: BP 128/76
[2017-09-04] MEDS: Piperacillin/Tazobactam 3.375 GM in D5W 110 ML IVPB SCH ×2 (06:08→13:53)
--- NOTE | 2017-09-04 07:45 | General Progress Note ---
Progress Note Progress Note Surgery: POD #1 s/p lap gurpreet for acute cholecystitis. doing well. no n/v/f/c. incisional pain. tolerating diet. needs to be more ambulatory. afebrile, HD Stable. epigastric and subcostal incisions c/d/i. umbilical incision dressings saturated and changed. no signs of infection just drainage from larger wound which gallbladder was removed from. okay to d/c home today from surgical standpoint if pain improve, ambulatory, and doing well. if continues to have incisional pain then may need to stay another day. Rx written diet as tolerated okay to shower activity as tolerated follow up with me next friday at 1pm. Eleno Ty Sep 04, 2017 07:45
[2017-09-04 08:15] VITALS: BP 131/81
[2017-09-04] MEDS: Docusate 100mg cap ORAL SCH (08:49)
[2017-09-04] MEDS ORDERED: NORCO 5-325 TA1 EACH ORAL (08:50)
[2017-09-04] MEDS ORDERED: LORazepam Inj 2mg/ml 1ml IM PRN (10:45)
[2017-09-04 13:25] VITALS: BP 108/54
--- NOTE | 2017-09-04 13:25 | 48 Hour Post Anesthesia Eval ---
Post Anesthesia Evaluation Procedure: Laparoscopic cholecystectomy Date of Evaluation: Sep 04, 2017 Time of Evaluation: 13:24 Blood Pressure Systolic: 108 0: 54 Pulse Rate: 82 Respiratory Rate: 22 Temperature (Fahrenheit): 97.8 O2 Sat by Pulse Oximetry: 98 Airway: patent Nausea: No Vomiting: No Pain Intensity: 2 Hydration Status: adequate Cardiopulmonary Status: stable Mental Status/LOC: patient returned to baseline Follow-up Care/Observations: n/a Post-Anesthesia Complications: none Follow-up care needed: N/A Marc Calloway MD Sep 04, 2017 13:25
[2017-09-04] MEDS ORDERED: NS 275ml ONE (16:59)
--- NOTE | 2017-09-05 00:17 | Discharge Summary ---
DATE OF ADMISSION: 09/01/2017 DATE OF DISCHARGE: 09/04/2017 PERTINENT HISTORY: The patient is a 22-year-old lady, who presents with right upper quadrant pain and cholecystitis. PERTINENT PHYSICAL FINDINGS: She had right upper quadrant tenderness. COURSE IN THE HOSPITAL: The patient had appropriate imaging and was brought to surgery by Dr. Ty for laparoscopic cholecystectomy. The patient tolerated the procedure well. She has stable vital signs postop and had pain, but this could be controlled with oral medications. She was discharged home in stable condition. FINAL DIAGNOSES: 1. Acute cholecystitis. 2. Pain control. 3. Hypokalemia, treated in the hospital. DISCHARGE DISPOSITION: Home on a diet as tolerated and Bath 5, one every four hours p.r.n. Ryan Acosta M.D. DR: DANA JOB#: [id number] CC:
== END 2017-09-04 17:00 | disposition home or self-care (01) | DRG 263 ==
LOC: EDBEDREQ 10:59 → EMR 11:05 → 4E 12:21 → EDBEDREQ 12:36 → 4E 09-02 17:17
PROC: 0FT44ZZ Resection of Gallbladder, Percutaneous Endoscopic Approach (ICD-10-PCS; principal; 2017-09-03 07:30)
DX: K80.00 Calculus of gallbladder with acute cholecystitis without obstruction (principal); D50.9 Iron deficiency anemia, unspecified; E87.6 Hypokalemia; N39.0 Urinary tract infection, site not specified
CPT/HCPCS: 36415; 74177; 76700; 78266; 80053; 81003; 81025; 83690; 85007; 85025; 85610; 85730; 87086; 87324; 94003; 94150; 99285; J2250; J2405; J2710; J8499

== ENCOUNTER 2019-05-15 01:20 | Emergency (ER) | payer MEDICAID ==
[~2019-05-15] VITALS: Ht 165.1 cm; Wt 104.3 kg
[~2019-05-15 01:20] MED LIST changes: +NORCO 5-325 TA1 EACH ORAL
[2019-05-15 01:30] VITALS: BP 111/67
[2019-05-15] MEDS ORDERED: ACETAMINOPHEN500 M3 ORAL ×2 (01:40)
[2019-05-15] MEDS ORDERED: ONDANSETRON ODT4 MG BC (01:40)
[2019-05-15] MEDS ORDERED: Ketorolac 30mg Inj IM ONE (01:45)
--- NOTE | 2019-05-15 01:45 | Emergency Room Report ---
History of Present Illness General Chief Complaint: Headache Source: Patient Present Illness HPI Disclaimer: Please note that this report is being documented using [employer] technology. This can lead to erroneous entry secondary to incorrect interpretation by the dictating instrument. HPI: 24-year-old female presents for evaluation of headache. Symptoms began approximately 5 PM yesterday afternoon. She states that she has had a tooth ache for 1 year in the right upper molars and has not seen a dentist yet. States she will get a headache that originates in the right upper molar and radiates to the right side of the face and up into the head. Throbbing in nature. Denies any vision changes, changes in balance, coordination, numbness, tingling, weakness. Denies neck stiffness, fever, chills. States she will get a headache from this tooth ache approximately every other day. She was taking Motrin at home as well as several of her boyfriends [place] tablets. She states they are causing her nausea. She was also seen at [facility] earlier today reportedly for similar issues. She is requesting a pain shot like she got over there. PMH: Denies PSH: Denies Allergies: Denies Social Hx: Denies COVID-19 risk:Contact w/high r: No COVID-19 risk:Travel to affect: No Has patient experienced ornelas: No Allergies: Coded Allergies: No Known Allergies (Unverified , 07/22/16) Patient History Last Menstrual Period: 04/2019 Nursing Documentation-PMH Hx Cardiac Problems: No Hx Cancer: No Hx Gastrointestinal Problems: No Hx Neurological Problems: No Review of Systems All Other Systems: negative except mentioned in HPI Physical Exam Vital Signs Date Time Temp Pulse Resp B/P (MAP) Pulse Ox O2 Delivery O2 Flow Rate FiO2 05/15/19 01:22 97.5 91 18 111/67 (82) 97 Room Air General: Awake and alert, no acute distress HEENT: NC/AT. EOMI. PERRLA. No nystagmus. Visual johnson are full. Dentition appears intact. No obvious fractures. No gingival edema. No evidence of abscess. The first molar is tender to palpation and percussion. No parotid swelling. No significant worsening of pain when percussing the trigeminal nerve. Neck: Supple, trachea midline Resp: Normal work of breathing Abdomen: Abdomen is soft, nondistended. Obese abdomen. Nontender Skin: Intact. No abrasions, laceration or rash over the exposed skin MSK: Normal tone and bulk. Moving all extremities. No obvious deformity. Neuro: Awake and alert. Mentating appropriately. Moving all extremities. Ambulating with a steady gait. Comprehension is full. No ataxia. No nystagmus. Medical Decision Making Diagnostic Impression: Primary Impression: Headache Additional Impression: Tooth pain ER Course There is a 24-year-old female presenting for evaluation of right side headache of gradual onset beginning this afternoon. She states that she has had headaches intermittently on the right side as a result of the persistent tooth pain for approximate 1 year and has not yet seen a dentist. Differential includes was not limited to headache induced by molar pain, referred pain, trigeminal neuralgia, perioral abscess, generalized headache, migraine, tension headache, cluster headache. Patient is neurologically intact with stable vital signs. She is complaining of nausea after taking her boyfriends [place]. I told her that she is not to take anyone else's prescription medication under any circumstances. Will give Zofran for nausea. Patient's exam is benign and history is reassuring. Very little clinical suspicion for intracranial bleed or mass. Do not believe she requires emergent imaging at this time. Will treat with Tylenol and Zofran and discharge home with PMD and dentistry follow- up. She can return with new or worsening symptoms. Last Vital Signs Date Time Temp Pulse Resp B/P (MAP) Pulse Ox O2 Delivery O2 Flow Rate FiO2 05/15/19 01:30 97.5 81 18 111/67 97 Room Air Disposition: HOME, SELF-CARE Condition: Stable Scripts Ondansetron Odt* (ZOFRAN ODT*) 4 Mg Tab.rapdis 4 MG BC EVERY 6 HOURS PRN for Nausea & Vomiting, #10 TAB 0 Refills Prov: Reginald Ferguson MD 05/15/19 Additional Instructions: See a dentist as soon as possible to discuss your 1 year of tooth pain. Please follow-up with your primary care doctor in the next 1 to 3 days to discuss this emergency department visit and for reevaluation. If you have any new or worsening symptoms please return to the emergency department for reevaluation. Please note that this report is being documented using Whatever technology. This can lead to erroneous entry secondary to incorrect interpretation by the dictating instrument. Reginald Ferguson MD May 15, 2019 01:45
[2019-05-15 02:15] VITALS: BP 111/67
== END 2019-05-15 02:15 | disposition home or self-care (01) ==
LOC: EMR 01:36
DX: R51 Headache (principal); K08.89 Other specified disorders of teeth and supporting structures
CPT/HCPCS: 96372; Z7502; 99283